=== PATIENT | male | born 1995 | race Caucasian/White ===

== ENCOUNTER 2018-05-01 12:53 | Inpatient (IN) | payer MEDICAID ==
--- NOTE | 2018-05-01 13:16 | ED ---
Psychiatric Complaint - HPI Summary HPI Summary: This patient is a 23 year old M BIB police from [facility] to ED with a chief complaint of SI without a plan since a couple of weeks ago. The patient brought himself to the outpatient [facility] for a second appointment and they sent him to the ED. The patient got out of [facility] a couple months ago for depression and SI without a plan. He was not given rx. He recently moved out of his apartment and is living with some friends. Although patient reports that housing has been a problem. The patient rates the pain 0/10 in severity. Symptoms aggravated by nothing. Symptoms alleviated by nothing. Patient reports depression, anxiety, and feeling defeated and hopeless. 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 His mother lives in [place] and his half- sister and father dont live too far from here. He lives in [place]. FHx of mental health problems, no suicides in the family. - History Of Current Complaint Chief Complaint: EDMentalHealth Hx Obtained From: Patient Onset/Duration: Sudden Onset, Lasting Hours Severity Currently: None Character: Depressed, Anxious Aggravating Factor(s): Nothing Alleviating Factor(s): Nothing Has Suicidal: Reports: Thoughts. Denies: With A Plan - Allergies/Home Medications Allergies/Adverse Reactions: Allergies Allergy/AdvReac Type Severity Reaction Status Date / Time No Known Allergies Allergy Verified 05/01/18 13:18 Home Medications: Home Medications NK [No Home Medications Reported] 05/01/18 [History Confirmed 05/01/18] PMH/Surg Hx/FS Hx/Imm Hx Endocrine/Hematology History: Denies: Hx Diabetes Cardiovascular History: Denies: Hx Coronary Artery Disease, Hx Hypertension Infectious Disease History: No Infectious Disease History: Denies: Traveled Outside the [place] in Last 30 Days - Family History Known Family History: Positive: Other Family History: FHx of depression and anxiety; no suicides in the family - Social History Lives: Alone - with a few friends Alcohol Use: None Substance Use Type: Reports: None Smoking Status (MU): Never Smoked Tobacco Review of Systems Negative: Fever Positive: Anxious, Depressed, Other - SI, feeling defeated and hopeless All Other Systems Reviewed And Are Negative: Yes Physical Exam - Summary Physical Exam Summary: Appearance: Well appearing, no pain distress Skin: warm, dry, reflects adequate perfusion Head/face: normal Eyes: EOMI, KRYSTYNA ENT: normal Neck: supple, non-tender Respiratory: CTA, breath sounds present Cardiovascular: RRR, pulses symmetrical Abdomen: non-tender, soft Bowel Sounds: present Musculoskeletal: normal, strength/ROM intact Neuro: normal, sensory motor intact, A&Ox3 Psych: Vague SI and flat affect Triage Information Reviewed: Yes Vital Signs On Initial Exam: Initial Vitals Temp Pulse Resp BP Pulse Ox 98.1 F 83 15 129/67 96 05/01/18 12:56 05/01/18 12:56 05/01/18 12:56 05/01/18 12:56 05/01/18 12:56 Vital Signs Reviewed: Yes Diagnostics - Vital Signs Vital Signs Temp Pulse Resp BP Pulse Ox 05/01/18 12:56 98.1 F 83 15 129/67 96 - Laboratory Result Diagrams: 05/01/18 13:20 05/01/18 13:20 Lab Statement: Any lab studies that have been ordered have been reviewed, and results considered in the medical decision making process. - EKG 1318 Cardiac Rate: NL - 68 BPM EKG Rhythm: Sinus Rhythm EKG Interpretation: Normal axis interval and ST Course/Dx - Course Course Of Treatment: Patient with flat affect and fleeting suicidal ideations. No specific plan at present. Medically cleared and received a crisis evaluation. It was elected that he be admitted for further psychiatric care. - Differential Dx/Clinical Impression Differential Diagnosis/HQI/PQRI: Positive: Depression, Suicidal Ideation Provider Diagnosis: Depression Discharge - Sign-Out/Discharge Documenting (check all that apply): Patient Departure - Discharge Plan Condition: Fair Disposition: ADMITTED TO [facility] - Billing Disposition and Condition Condition: FAIR Disposition: Admitted to [facility] - Attestation Statements Document Initiated by Scribe: Yes Documenting Scribe: Jr Albrecht Provider For Whom Scribe is Documenting (Include Credential): Kelvin Esquivel MD Scribe Attestation: Jr Haskins, scribed for Kelvin Esquivel MD on 05/01/18 at 1647. Scribe Documentation Reviewed: Yes Provider Attestation: The documentation as recorded by the scribeJr accurately reflects the service I personally performed and the decisions made by , Kelvin Esquivel MD
[2018-05-01 13:36] LABS: ABS Basophils 0 10^3/ul (0-0.2); ABS Eosinophils 0.1 10^3/ul (0-0.6); ABS Lymphocytes 1.2 10^3/ul (1.0-4.8); ABS Monocytes 0.4 10^3/ul (0-0.8); ABS Neutrophils 6.1 10^3/ul (1.5-7.7); ABS Nucleated RBC 0 10^3/ul; Eosinophil % 0.8 % (0-6); Hematocrit 41 % (42-52); Lymphocyte % 15.8 % (25-47); Mean Corpuscular HGB Conc 34 g/dl (31-36); Mean Corpuscular Hemoglobin 29 pg (27-31); Mean Corpuscular Volume 85 fL (80-94); Mean Platelet Volume 7.4 um3 (7.4-10.4); Nucleated Red Blood Cells % 0; Platelet Count 321 10^3/ul (150-450); Red Blood Count 4.82 10^6/ul (4.00-5.40); Red Cell Distribution Width 13 % (10.5-15); White Blood Count 7.9 10^3/ul (3.5-10.8)
[2018-05-01 13:59] LABS: EGFR Non-African American 124.1 (>60)
[2018-05-01 14:17] LABS: Urine Appearance Cloudy; Urine Blood Negative (Negative); Urine Color Yellow; Urine Ketones Negative (Negative); Urine Protein Negative (Negative); Urine Specific Gravity 1.023 (1.010-1.030); Urine Urobilinogen Positive (Negative)
[2018-05-02] MEDS ORDERED: Acetaminophen TAB* 325 MG PO PRN (00:52)
[2018-05-02] MEDS ORDERED: Al Hydrox/Mg Hydrox/Simet LIQ* 30 ML UDC PO PRN (00:52)
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
[2018-05-02] MEDS ORDERED: diPHENhydraMINE PO* 50 MG PO PRN (13:21)
[2018-05-02] MEDS: Vitamin THERAPEUTIC TAB PO SCH (16:41)
[2018-05-02] MEDS: Mirtazapine TAB* 15 MG PO SCH (21:30)
[2018-05-03] MEDS: Vitamin THERAPEUTIC TAB PO SCH (10:06)
[2018-05-03] MEDS: Haloperidol TAB* 5 MG PO PRN (10:59)
--- NOTE | 2018-05-03 12:50 | PN ---
Subjective - Subjective Date of Service: 05/03/18 Service Type: 46534 Hosp care 15 min low complexity Subjective: Patient was seen by self, discussed with treatment team, chart was reviewed. Patient has been compliant with his medications, no reported side effects. Patient reports continue to feel depressed, guilts, feelings of hopelessness and worthlessness, with passive SI. Patient has continuous struggles with his stressors outside the hospital. Patient has been feeling much better in the hospital as he is able to worry less about stressors. Patient has limited support system and resources in the community. Patient has been attending groups and especially was interested in improving his interpersonal skill to strengthen his relationship. Patient sleeping has been better. Patient eating has been fair. Patient has been cooperative with staff. Patient behavior has been in control. Patient mood was less anxious and dysphoric and reports intermittent disconnect when under stressful talk with in himself and experience likely non psychotic hallucinations putting him down. As patient has been worried about his discharge and where he will go and what he will do from there. Patient has been reporting passive suicidal thoughts but no homicidal ideation. No psychotic symptoms of delusions. Objective - Appearance Appearance: Healthy Appearing Dysmorphic Features: No Hygiene: Normal Grooming: Fairly Well Kept - Behavior Psychomotor Activities: Normal Exhibits Abnormal Movement: No - Attitude and Relatedness Attitude and Relatedness: Superficially Cooperative Eye Contact: Fair - Mood Patient's Decription of Mood: "Okay" - Affect Observed Affect: Depressed Affect Consistent with: Dysphoria - Thought Process Patient's Thought Process: Goal Directed Thought Content: Yes Passive Wish, No Suicidal Planning, No Homicidal Ideation, No Paranoid Ideation - Sensorium Experiencing Hallucinations: No, Sensorium is Clear Type of Hallucinations: Visual: No, Auditory: No - not at the time of evaluation , Command: No - Level of Consciousness Level of Consciousness: Alert Orientation: Yes Intact, Yes Orientated to Time, Yes Orientated to Place, Yes Orientated to Person - Impulse Control Impulse Control: Intact - Insight and Judgement Insight and Judgement: Fair - Group Participation Particating in Group Activities: Yes - Medication Management Medication Management Adherence: Yes Assessment - Assessment Merits Inpatient Hospitalization: For Immediate Safety, For Stabilization, For Discharge Planning Inpatient DSM-V Dx: F33.8 Clinical Impression: Patient with history of Depression, anxiety and a suicidal attempt 3 years ago. Patient currently admitted due to worsening of his depression and anxiety, affecting his functioning and triggering his suicidal thoughts and was having a plan to cut his throat with no intact hence seek for help. Patient has also struggled with his homelessness and limited support from family and friends. Patient is a danger to self if discharged hence will be stabilized on inpatient unit with medication adjustments and therapy. Plan - Plan Treatment Plan: Name: RODERICK GUERRERO Birthdate: 1995 [id number] - Patient continues to be hospitalized due to recent suicidal thoughts with plan , depression, anxiety and multiple psychosocial stressor with limited support. - Patient's medications were adjusted after informed consent with continuation of Remeron at 15 mg HS and continue with PRN medications. Also to monitor hallucinations. - Patient will be monitored for improvement and side effects. Risk and benefits were discussed. - Patient was encouraged to continue his participation in the milieu, group and individual therapy. Medications: Current Medications Acetaminophen (Tylenol Tab*) 650 mg PO Q4H PRN PRN Reason: PAIN or TEMP > 101 F Al Hydrox/Mg Hydrox/Simethicone (Maalox Plus*) 30 ml PO Q4H PRN PRN Reason: INDIGESTION Diphenhydramine HCl (Benadryl Po*) 50 mg PO Q6H PRN PRN Reason: anxiety/eps Haloperidol (Haldol Tab*) 5 mg PO Q6H PRN PRN Reason: psychosis/agitation Last Admin: 05/03/18 10:59 Dose: 5 mg Mirtazapine (Remeron Tab*) 15 mg PO BEDTIME [facility] Last Admin: 05/02/18 21:30 Dose: 15 mg Multivitamins (Theragran Tab*) 1 tab PO DAILY [facility] Last Admin: 05/03/18 10:06 Dose: Not Given
--- NOTE | 2018-05-03 13:10 | PN ---
MHU: Group Therapy Note - Service Type Service Type: 83532 Group Psychotherapy - Cognitive Behavioral Group Therapy ( CBT):Patient was attentive and participatory in CBT programming this morning, and remained in good behavioral control. Patient expressed positive insights regarding relevant treatment interventions and goals.
[2018-05-03] MEDS: Mirtazapine TAB* 15 MG PO SCH (21:05)
[2018-05-04] MEDS: Vitamin THERAPEUTIC TAB PO SCH (09:32)
--- NOTE | 2018-05-04 14:27 | PN ---
Subjective - Subjective Date of Service: 05/04/18 Service Type: [id number] Hosp care 15 min low complexity Subjective: Franklyn is seen in weekend coverage for Dr. Marquez. He reports feeling "better" and is tolerating mirtazapine well. He denies SI or thoughts of self-harm. Franklyn continues to experience a female auditory hallucination that makes derogatory statements towards him that are ego-dystonic in nature and somewhat distressing. He tried a 5mg tab of haloperidol for these but states that this made him feel "edgy" and does not want to try it again. He requests q30 minute and staff pass privileges. Staff report that he is adherent with milieu expectations. Objective - Appearance Appearance: Well Developed/Nourished Dysmorphic Features: No Hygiene: Normal Grooming: Fairly Well Kept - Behavior Psychomotor Activities: Normal Exhibits Abnormal Movement: No - Attitude and Relatedness Attitude and Relatedness: Cooperative Eye Contact: Fair - Speech Quality: Unpressured Latencies: Normal Quantity: Appropriate - Mood Patient's Decription of Mood: "Fine" - Affect Observed Affect: Fair Affect Consistent with: Euthymia - Thought Process Patient's Thought Process: Coherent Thought Content: No Passive Wish, No Suicidal Planning, No Homicidal Ideation, No Paranoid Ideation - Sensorium Experiencing Hallucinations: Yes Type of Hallucinations: Visual: No, Auditory: Yes, Command: No - Level of Consciousness Level of Consciousness: Alert Orientation: Yes Intact, Yes Orientated to Time, Yes Orientated to Place, Yes Orientated to Person - Impulse Control Impulse Control: Tenuous - Insight and Judgement Insight and Judgement: Fair - Group Participation Particating in Group Activities: Yes - Medication Management Medication Management Adherence: Yes Assessment - Assessment Merits Inpatient Hospitalization: For Immediate Safety, For Stabilization Inpatient DSM-V Dx: F33.8 Clinical Impression: 23 y.o. single, white male with a history of insecure housing and psychotic depression admitted for worsening anxiety and depressed mood and suicidal thoughts to cut his own throat. Plan - Plan Treatment Plan: Name: RODERICK GUERRERO Birthdate: 1995 [id number] The patient is tolerating mirtazapine 15mg PO qhs well. He continues to require inpatient-level services for safety. Continued Medication Management: Start Medication Medications: Current Medications Acetaminophen (Tylenol Tab*) 650 mg PO Q4H PRN PRN Reason: PAIN or TEMP > 101 F Al Hydrox/Mg Hydrox/Simethicone (Maalox Plus*) 30 ml PO Q4H PRN PRN Reason: INDIGESTION Diphenhydramine HCl (Benadryl Po*) 50 mg PO Q6H PRN PRN Reason: anxiety/eps Haloperidol (Haldol Tab*) 5 mg PO Q6H PRN PRN Reason: psychosis/agitation Last Admin: 05/03/18 10:59 Dose: 5 mg Mirtazapine (Remeron Tab*) 15 mg PO BEDTIME [facility] Last Admin: 05/03/18 21:05 Dose: 15 mg Multivitamins (Theragran Tab*) 1 tab PO DAILY [facility] Last Admin: 05/04/18 09:32 Dose: Not Given - Discharge Plan Discharge Plan: Inpatient Hospitalization Lab Results - Lab Results Lab Results: 05/01/18 05/01/18 05/02/18 13:20 14:08 08:06 Hemoglobin A1c Triglycerides 102 Cholesterol 144 LDL Cholesterol 88 HDL Cholesterol 35.8 TSH 0.01 L Urine Opiates Screen None detected Ur Barbiturates Screen None detected Ur Phencyclidine Scrn None detected Ur Amphetamines Screen None detected U Benzodiazepines Scrn None detected Urine Cocaine Screen None detected U Cannabinoids Screen None detected 05/02/18 08:06 Hemoglobin A1c 5.2 Triglycerides Cholesterol LDL Cholesterol HDL Cholesterol TSH Urine Opiates Screen Ur Barbiturates Screen Ur Phencyclidine Scrn Ur Amphetamines Screen U Benzodiazepines Scrn Urine Cocaine Screen U Cannabinoids Screen
[2018-05-04] MEDS: Mirtazapine TAB* 15 MG PO SCH (20:32)
[2018-05-05] MEDS: Vitamin THERAPEUTIC TAB PO SCH (09:07)
[2018-05-05] MEDS: Mirtazapine TAB* 15 MG PO SCH (20:56)
[2018-05-06] MEDS: Vitamin THERAPEUTIC TAB PO SCH (08:18)
--- NOTE | 2018-05-06 11:39 | PN ---
MHU: Group Therapy Note - Service Type Service Type: [id number] Group Psychotherapy - Cognitive Behavioral Group Therapy ( CBT):Patient was attentive and participatory in CBT programming this morning, and remained in good behavioral control. Patient expressed positive insights regarding relevant treatment interventions and goals.
--- NOTE | 2018-05-06 13:37 | PN ---
Subjective - Subjective Date of Service: 05/06/18 Service Type: 13430 Hosp care 15 min low complexity Subjective: Patient was seen by self, discussed with treatment team, chart was reviewed. Patient has been compliant with his medications, no reported side effects. Patient reports feeling better in his depression, less feelings of hopelessness and worthlessness, no SI. Patient reports anxiety to be at 6/10. Patient has been socializing on the unit with other peers and also participating in groups. Patient working on setting up goals for himself. Patient was able to communicate wit his friend and found out that he can return back. Patient was able to appreciate group on inter personal skills and is working on strengthening relationships with others and improve communication. Patient has limited support system and resources in the community and is hopeful to work with Ariana to help on that. Patient sleeping has been better. Patient eating has been fair. Patient has been cooperative with staff. Patient behavior has been in control. Patient has been reporting no suicidal thoughts or homicidal ideation. No psychotic symptoms of delusions and hallucinations. Objective - Appearance Appearance: Healthy Appearing Dysmorphic Features: No Hygiene: Normal Grooming: Fairly Well Kept - Attitude and Relatedness Attitude and Relatedness: Cooperative Eye Contact: Fair - Speech Quality: Unpressured Latencies: Normal Quantity: Appropriate - Mood Patient's Decription of Mood: "Anxious" - Affect Observed Affect: Fair Affect Consistent with: Dysphoria - less - Thought Process Patient's Thought Process: Coherent, Goal Directed Thought Content: No Passive Wish, No Suicidal Planning, No Homicidal Ideation, No Paranoid Ideation - Sensorium Experiencing Hallucinations: No, Sensorium is Clear Type of Hallucinations: Visual: No, Auditory: No, Command: No - Level of Consciousness Orientation: Yes Intact, Yes Orientated to Time, Yes Orientated to Place, Yes Orientated to Person - Impulse Control Impulse Control: Intact - Insight and Judgement Insight and Judgement: Fair - Group Participation Particating in Group Activities: Yes - Medication Management Medication Management Adherence: Yes Assessment - Assessment Merits Inpatient Hospitalization: For Immediate Safety, For Stabilization, For Discharge Planning Inpatient DSM-V Dx: F33.8 Clinical Impression: Patient with history of Depression, anxiety and a suicidal attempt 3 years ago. Patient currently admitted due to worsening of his depression and anxiety, affecting his functioning and triggering his suicidal thoughts and was having a plan to cut his throat with no intact hence seek for help. Patient has also struggled with his homelessness and limited support from family and friends. Patient is a danger to self if discharged hence will be stabilized on inpatient unit with medication adjustments and therapy. Plan - Plan Treatment Plan: Name: RODERICK GUERRERO Birthdate: 1995 [id number] - Patient continues to be hospitalized due to recent suicidal thoughts with plan , depression, anxiety and multiple psychosocial stressor with limited support. - Patient's medications were adjusted after informed consent with continuation of Remeron at 15 mg HS and continue with PRN medications. Also to monitor hallucinations or other psychotic symptoms. - Patient will be monitored for improvement and side effects. Risk and benefits were discussed. - Patient was encouraged to continue his participation in the milieu, group and individual therapy. Medications: Current Medications Acetaminophen (Tylenol Tab*) 650 mg PO Q4H PRN PRN Reason: PAIN or TEMP > 101 F Al Hydrox/Mg Hydrox/Simethicone (Maalox Plus*) 30 ml PO Q4H PRN PRN Reason: INDIGESTION Diphenhydramine HCl (Benadryl Po*) 50 mg PO Q6H PRN PRN Reason: anxiety/eps Haloperidol (Haldol Tab*) 5 mg PO Q6H PRN PRN Reason: psychosis/agitation Last Admin: 05/03/18 10:59 Dose: 5 mg Mirtazapine (Remeron Tab*) 15 mg PO BEDTIME [facility] Last Admin: 05/05/18 20:56 Dose: 15 mg Multivitamins (Theragran Tab*) 1 tab PO DAILY [facility] Last Admin: 05/06/18 08:18 Dose: Not Given
[2018-05-06] MEDS: Haloperidol TAB* 5 MG PO PRN (15:34)
[2018-05-06] MEDS: Mirtazapine TAB* 15 MG PO SCH (20:33)
[2018-05-07 08:50] VITALS: BP 126/73
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
== END 2018-05-07 11:39 | disposition home or self-care (01) | DRG 751 ==
LOC: ED 12:53 → BSU 16:08
PROVIDERS: ADMIT Psychiatry & Neurology Psychiatry; ATTEND Psychiatry & Neurology Psychiatry
DX: F33.3 Major depressive disorder, recurrent, severe with psychotic symptoms (principal); R45.851 Suicidal ideations; F41.9 Anxiety disorder, unspecified; Z81.8 Family history of other mental and behavioral disorders; Z59.0 Homelessness
CPT/HCPCS: 36415; 80053; 80061; 80307; 80320; 80329; 81003; 83036; 84443; 85025; 90853; 93005; 99222; 99231; 99238; 99284; A9270-GY; G0480

== ENCOUNTER 2018-07-01 10:52 | Inpatient (IN) | payer MEDICAID, OTHER ==
[2018-07-01 11:29] LABS: ABS Basophils 0 10^3/ul (0-0.2); ABS Eosinophils 0.1 10^3/ul (0-0.6); ABS Lymphocytes 1.4 10^3/ul (1.0-4.8); ABS Monocytes 0.4 10^3/ul (0-0.8); ABS Neutrophils 5.5 10^3/ul (1.5-7.7); ABS Nucleated RBC 0 10^3/ul; Eosinophil % 1.1 % (0-6); Hematocrit 45 % (42-52); Hemoglobin 15.4 g/dl (14.0-18.0); Lymphocyte % 19.2 % (25-47); Mean Corpuscular HGB Conc 35 g/dl (31-36); Mean Corpuscular Hemoglobin 29 pg (27-31); Mean Corpuscular Volume 84 fL (80-94); Mean Platelet Volume 7.2 um3 (7.4-10.4); Nucleated Red Blood Cells % 0.1; Platelet Count 367 10^3/ul (150-450); Red Cell Distribution Width 14 % (10.5-15); White Blood Count 7.4 10^3/ul (3.5-10.8)
[2018-07-01 11:41] LABS: Urine Appearance Clear; Urine Blood Negative (Negative); Urine Color Amber; Urine Ketones Trace (Negative); Urine Protein 1+(30 mg/dL) (Negative); Urine Red Blood Cell Absent (Absent); Urine Specific Gravity 1.031 (1.010-1.030); Urine Urobilinogen Positive (Negative); Urine White Blood Cell 1+(6-10/hpf) (Absent)
[2018-07-01 11:50] LABS: EGFR Non-African American 96.2 (>60)
--- NOTE | 2018-07-01 12:41 | ED ---
Psychiatric Complaint - HPI Summary HPI Summary: Patient is a 23 y/o M w/ c/o SI w/ plan to overdose on pills. He is here as 941. Patient reports Hx of suicide attempt by overdosing on pills. He notes that he was admitted to [facility] [place] psych a couple of months ago as well. Patient denies drug usage, states that PCP recently switched him onto wellbutrin on after an appointment with PCP to discuss medications. Previous medications were not effective. He notes that he has not picked up his medication yet. He denies blurry/double vision, chest pain, SOB, MANLEY, sore throat , ear ache, neck pain, back pain, vomiting, diarrhea, edema, rashes, bruises. On triage, pain is denied, nothing is noted to aggravate/alleviate Sx. Home medications and allergies are reviewed. - History Of Current Complaint Chief Complaint: [facility] Hx Obtained From: Patient Onset/Duration: Still Present Timing: Constant Severity Currently: None - pain denied Character: Depressed Aggravating Factor(s): Nothing Alleviating Factor(s): Nothing Has Suicidal: Reports: Thoughts, With A Plan, Has Prior Attempt(s) - Allergies/Home Medications Allergies/Adverse Reactions: Allergies Allergy/AdvReac Type Severity Reaction Status Date / Time No Known Allergies Allergy Verified 05/01/18 13:18 PMH/Surg Hx/FS Hx/Imm Hx Endocrine/Hematology History: Denies: Hx Diabetes Cardiovascular History: Denies: Hx Coronary Artery Disease, Hx Hypertension Sensory History: Reports: Hx Contacts or Glasses Denies: Hx Hearing Aid Opthamlomology History: Reports: Hx Contacts or Glasses Neurological History: Reports: Hx Migraine Psychiatric History: Reports: Hx Anxiety, Hx Eating Disorder - hx "binge and purge", Hx Depression, Hx Panic Disorder, Hx Post Traumatic Stress Disorder, Hx Inpatient Treatment, Hx Community Mental Health Tx, Hx Suicide Attempt Denies: Hx Schizophrenia, Hx of Violent Episodes Against Others, Hx Substance Abuse Infectious Disease History: No Infectious Disease History: Denies: Traveled Outside the [place] in Last 30 Days - Family History Known Family History: Positive: Other Family History: FHx of depression and anxiety; no suicides in the family - Social History Alcohol Use: None Substance Use Type: Reports: None Smoking Status (MU): Never Smoked Tobacco Review of Systems Negative: Fever - on vitals, temp is 97.1 F Positive: Other - NEGATIVE: double vision . Negative: Blurred Vision Negative: Sore Throat, Ear Ache Negative: Chest Pain Negative: Shortness Of Breath Negative: Vomiting, Diarrhea Positive: other - NEGATIVE: blood in stool . Negative: dysuria, hematuria Positive: Other - NEGATIVE: neck pain . Negative: Edema Negative: Rash, Bruising Negative: Headache Positive: Depressed, Other - SI w/ plan All Other Systems Reviewed And Are Negative: No Physical Exam - Summary Physical Exam Summary: Appearance: Alert, conversive, nontoxic appearing Skin: Warm, dry, no mottling, no rashes, no contusions HEENT: EOMI, PERRL, moist mucous membranes Neck: No masses on the neck, supple Respiratory: Clear to auscultation, breath sounds present, no rales, no rhonchi , no wheezes Cardiovascular: RRR, pulses are symmetrical in both lower and upper extremities Abdomen: Soft, non-tender Bowel Sounds: Present Musculoskeletal: No CVA tenderness, no obvious deformity, moving all extremities in a grossly normal manner Neurological: A&Ox3, CN II-XII Intact, moving all extremities symmetrically Psychiatric: Flat affect, tearful. Triage Information Reviewed: Yes Vital Signs On Initial Exam: Initial Vitals Temp Pulse Resp BP Pulse Ox 97.1 F 97 16 116/72 97 07/01/18 10:56 07/01/18 10:56 07/01/18 10:56 07/01/18 10:56 07/01/18 10:56 Vital Signs Reviewed: Yes Diagnostics - Vital Signs Vital Signs Temp Pulse Resp BP Pulse Ox 07/01/18 12:28 98.2 F 82 18 121/72 98 07/01/18 10:56 97.1 F 97 16 116/72 97 - Laboratory Lab Results: Lab Results 07/01/18 07/01/18 07/01/18 Range/Units 11:18 11:18 11:24 WBC 7.4 (3.5-10.8) 10^3/ul RBC 5.30 (4.00-5.40) 10^6/ul Hgb 15.4 (14.0-18.0) g/dl Hct 45 (42-52) % MCV 84 (80-94) fL MCH 29 (27-31) pg MCHC 35 (31-36) g/dl RDW 14 (10.5-15) % Plt Count 367 (150-450) 10^3/ul MPV 7.2 L (7.4-10.4) um3 Neut % (Auto) 73.9 (38-83) % Lymph % (Auto) 19.2 L (25-47) % Payette % (Auto) 5.6 (0-7) % Eos % (Auto) 1.1 (0-6) % Baso % (Auto) 0.2 (0-2) % Absolute Neuts (auto) 5.5 (1.5-7.7) 10^3/ul Absolute Lymphs (auto) 1.4 (1.0-4.8) 10^3/ul Absolute Monos (auto) 0.4 (0-0.8) 10^3/ul Absolute Eos (auto) 0.1 (0-0.6) 10^3/ul Absolute Basos (auto) 0 (0-0.2) 10^3/ul Absolute Nucleated RBC 0 10^3/ul Nucleated RBC % 0.1 Sodium 138 (135-145) mmol/L Potassium 3.9 (3.5-5.0) mmol/L Chloride 103 (101-111) mmol/L Carbon Dioxide 29 (22-32) mmol/L Anion Gap 6 (2-11) mmol/L BUN 10 (6-24) mg/dL Creatinine 0.96 (0.67-1.17) mg/dL Est GFR ( Amer) 116.4 (>60) Est GFR (Non-Af Amer) 96.2 (>60) BUN/Creatinine Ratio 10.4 (8-20) Glucose 98 (70-100) mg/dL Calcium 9.8 (8.6-10.3) mg/dL Total Bilirubin 1.80 H (0.2-1.0) mg/dL AST 18 (13-39) U/L ALT 17 (7-52) U/L Alkaline Phosphatase 66 (34-104) U/L Total Protein 7.9 (6.4-8.9) g/dL Albumin 4.5 (3.2-5.2) g/dL Globulin 3.4 (2-4) g/dL Albumin/Globulin Ratio 1.3 (1-3) TSH Pending Urine Color Josette Urine Appearance Clear Urine pH 5.0 (5-9) Ur Specific Anderson 1.031 H (1.010-1.030) Urine Protein 1+(30 mg/dl) A (Negative) Urine Ketones Trace A (Negative) Urine Blood Negative (Negative) Urine Nitrate Negative (Negative) Urine Bilirubin Negative (Negative) Urine Urobilinogen Positive A (Negative) Ur Leukocyte Esterase Negative (Negative) Urine WBC (Auto) 1+(6-10/hpf) A (Absent) Urine RBC (Auto) Absent (Absent) Urine Bacteria Absent (Absent) Urine Glucose Negative (Negative) Salicylates < 2.50 (<30) mg/dL Urine Opiates Screen (None Detect) Acetaminophen < 15 mcg/mL Ur Barbiturates Screen (None Detect) Ur Phencyclidine Scrn (None Detect) Ur Amphetamines Screen (None Detect) U Benzodiazepines Scrn (None Detect) Urine Cocaine Screen (None Detect) U Cannabinoids Screen (None Detect) Serum Alcohol < 10 (<10) mg/dL 07/01/18 Range/Units 11:24 WBC (3.5-10.8) 10^3/ul RBC (4.00-5.40) 10^6/ul Hgb (14.0-18.0) g/dl Hct (42-52) % MCV (80-94) fL MCH (27-31) pg MCHC (31-36) g/dl RDW (10.5-15) % Plt Count (150-450) 10^3/ul MPV (7.4-10.4) um3 Neut % (Auto) (38-83) % Lymph % (Auto) (25-47) % Payette % (Auto) (0-7) % Eos % (Auto) (0-6) % Baso % (Auto) (0-2) % Absolute Neuts (auto) (1.5-7.7) 10^3/ul Absolute Lymphs (auto) (1.0-4.8) 10^3/ul Absolute Monos (auto) (0-0.8) 10^3/ul Absolute Eos (auto) (0-0.6) 10^3/ul Absolute Basos (auto) (0-0.2) 10^3/ul Absolute Nucleated RBC 10^3/ul Nucleated RBC % Sodium (135-145) mmol/L Potassium (3.5-5.0) mmol/L Chloride (101-111) mmol/L Carbon Dioxide (22-32) mmol/L Anion Gap (2-11) mmol/L BUN (6-24) mg/dL Creatinine (0.67-1.17) mg/dL Est GFR ( Amer) (>60) Est GFR (Non-Af Amer) (>60) BUN/Creatinine Ratio (8-20) Glucose (70-100) mg/dL Calcium (8.6-10.3) mg/dL Total Bilirubin (0.2-1.0) mg/dL AST (13-39) U/L ALT (7-52) U/L Alkaline Phosphatase (34-104) U/L Total Protein (6.4-8.9) g/dL Albumin (3.2-5.2) g/dL Globulin (2-4) g/dL Albumin/Globulin Ratio (1-3) TSH Urine Color Urine Appearance Urine pH (5-9) Ur Specific Anderson (1.010-1.030) Urine Protein (Negative) Urine Ketones (Negative) Urine Blood (Negative) Urine Nitrate (Negative) Urine Bilirubin (Negative) Urine Urobilinogen (Negative) Ur Leukocyte Esterase (Negative) Urine WBC (Auto) (Absent) Urine RBC (Auto) (Absent) Urine Bacteria (Absent) Urine Glucose (Negative) Salicylates (<30) mg/dL Urine Opiates Screen None detected (None Detect) Acetaminophen mcg/mL Ur Barbiturates Screen None detected (None Detect) Ur Phencyclidine Scrn None detected (None Detect) Ur Amphetamines Screen None detected (None Detect) U Benzodiazepines Scrn None detected (None Detect) Urine Cocaine Screen None detected (None Detect) U Cannabinoids Screen None detected (None Detect) Serum Alcohol (<10) mg/dL Result Diagrams: 07/01/18 11:18 07/01/18 11:18 Lab Statement: Any lab studies that have been ordered have been reviewed, and results considered in the medical decision making process. Re-Evaluation - Re-Evaluation First Eval Re-Evaluation Time: 11:45 Comment: Patient was medically cleared for MHE. Course/Dx - Course Course Of Treatment: Patient is a 23 y/o M w/ c/o SI w/ plan to overdose on pills. He is here as 941. Patient reports Hx of suicide attempt by overdosing on pills. He notes that he was admitted to [facility] psych a couple of months ago as well. Patient denies drug usage, states that PCP recently switched him onto wellbutrin on 06/27/18 after an appointment with PCP to discuss medications. Previous medications were not effective. He notes that he has not picked up his medication yet. No other medical problems reported. On physical exam, patient is noted to have flat affect and to be tearful. EKG showed sinus rhythm with rate of 63 BPM normal QRS, normal QTc, normal axis, normal ST-T waves. Tox screen was negative. UA showed negative glucose, absent bacteria, 1+ WBC, positive urobilinogen, trace ketones, 1+ protein. Labs showed TSH 0.15. 1641 - Dr. Perez reviewed the patient's case, patient will be a mental health hold pending evaluation of patient by psychiatrist tomorrow morning. Patient will be signed out to Dr. Perkins pending disposition of patient. Dx of depression and SI. - Differential Dx/Clinical Impression Provider Diagnosis: Depression, Suicidal ideation - Physician Notifications Discussed Care Of Patient With: Andrews Perez Time Discussed With Above Provider: 16:41 Instructed by Provider To: Other - 1641 - Dr. Perez reviewed the patient's case , patient will be a mental health hold pending evaluation of patient by psychiatrist tomorrow morning. Discharge - Sign-Out/Discharge Documenting (check all that apply): Sign-Out Patient Signing out patient TO: Andrea Perkins Receiving patient FROM: Prudence Beckman - Discharge Plan Referrals: No Primary Care Phys,NOPCP [Primary Care Provider] - - Attestation Statements Document Initiated by Uzielibe: Yes Documenting Scribe: Rober Fritz Provider For Whom Zainab is Documenting (Include Credential): Prudence Beckman MD Scribe Attestation: Jozef, Rober Fritz , scribed for Prudence Beckman MD on 07/01/18 at 1855. Scribe Documentation Reviewed: Yes Provider Attestation: The documentation as recorded by the Rober lowry accurately reflects the service I personally performed and the decisions made by me, Prudence Beckman MD
--- NOTE | 2018-07-01 19:31 | ED ---
Progress - Progress Note Progress Note: Pt signed out by Dr. Beckman to Dr. Perkins at shift change pending MHE. - Consult/PCP Time Called: 15:00 Re-Evaluation - Re-Evaluation First Eval Re-Evaluation Time: 11:45 Comment: Patient was medically cleared for MHE. Course/Dx - Course Course Of Treatment: Patient is a 23 y/o M w/ c/o SI w/ plan to overdose on pills. He is here as 941. Patient reports Hx of suicide attempt by overdosing on pills. He notes that he was admitted to [facility] psych a couple of months ago as well. Patient denies drug usage, states that PCP recently switched him onto wellbutrin on 06/27/18 after an appointment with PCP to discuss medications. Previous medications were not effective. He notes that he has not picked up his medication yet. No other medical problems reported. On physical exam, patient is noted to have flat affect and to be tearful. EKG showed sinus rhythm with rate of 63 BPM normal QRS, normal QTc, normal axis, normal ST-T waves. Tox screen was negative. UA showed negative glucose, absent bacteria, 1+ WBC, positive urobilinogen, trace ketones, 1+ protein. Labs showed TSH 0.15. 1641 - Dr. Perez reviewed the patient's case, patient will be a mental health hold pending evaluation of patient by psychiatrist tomorrow morning. Patient will be signed out to Dr. Perkins pending disposition of patient. Dx of depression and SI. - Diagnoses Provider Diagnoses: Depression, Suicidal ideation - Provider Notifications Time Discussed With Above Provider: 16:41 Instructed by Provider To: Other - 1641 - Dr. Perez reviewed the patient's case , patient will be a mental health hold pending evaluation of patient by psychiatrist tomorrow morning. Discharge - Discharge Plan Referrals: No Primary Care Phys,NOPCP [Primary Care Provider] - - Attestation Statements Document Initiated by Scribe: Yes Documenting Scribe: Eros Stoddard Provider For Whom Scribe is Documenting (Include Credential): Andrea Perkins MD Scribe Attestation: Eros Haskins, scribed for Andrea Perkins MD on 07/01/18 at 1931.
--- NOTE | 2018-07-02 07:25 | ED ---
Progress - Progress Note Progress Note: Patient is received as a sign out from Dr. Perkins to Dr. George at 0700 shift change pending MHE by psychiatrist. 1100 - Dr. Marquez reviewed patient's case, patient will be a voluntary admit. older worker specialist recommended that [facility], patient stated that he would kill himself if this is his only option. Dr. George is agreeable with this plan. Dx of depression. - Consult/PCP Time Called: 15:00 Re-Evaluation - Re-Evaluation First Eval Re-Evaluation Time: 11:45 Comment: Patient was medically cleared for MHE. Course/Dx - Course Course Of Treatment: Patient is received as a sign out from Dr. Perkins to Dr. George at 0700 07/02/18 shift change pending MHE by psychiatrist. 1100 - Dr. Marquez reviewed patient's case, patient will be a voluntary admit. older worker specialist recommended that patient go to [facility], patient stated that he would kill himself if this is his only option. Dr. George is agreeable with this plan. Dx of depression. - Diagnoses Provider Diagnoses: Depression - Provider Notifications Discussed Care Of Patient With: Andrew Marquez Time Discussed With Above Provider: 11:00 Instructed by Provider To: Other - 1100 - Dr. Marquez reviewed patient's case, patient will be a voluntary admit. older worker specialist recommended that patient go to [facility], patient stated that he would kill himself if this is his only option. Dr. George is agreeable with this plan. Dx of depression. Discharge - Sign-Out/Discharge Documenting (check all that apply): Patient Departure - admit - Discharge Plan Condition: Good Disposition: PSYCHIATRIC FACILITY[facility] Referrals: No Primary Care Phys,NOPCP [Primary Care Provider] - - Attestation Statements Document Initiated by Scribe: Yes Documenting Scribe: Rober Fritz Provider For Whom Scribe is Documenting (Include Credential): Cem George MD Scribe Attestation: Rober Haskins , scribed for Cem George MD on 07/02/18 at 1105.
[2018-07-02] MEDS ORDERED: diPHENhydraMINE PO* 50 MG PO PRN (11:00)
[2018-07-02] MEDS ORDERED: Al Hydrox/Mg Hydrox/Simet LIQ* 30 ML UDC PO PRN (12:43)
[2018-07-02] MEDS: Mirtazapine TAB* 15 MG PO SCH (21:21)
[2018-07-03] MEDS: Vitamin THERAPEUTIC TAB PO SCH (08:49)
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
--- NOTE | 2018-07-03 15:05 | PN ---
MHU: Group Therapy Note - Service Type Service Type: 61891 Psychotherapy - Medication Education Group: Patient was attentive and participatory in group, and remained in good behavioral control. Patient expressed positive insights regarding relevant treatment interventions. Patient stated understanding of material discussed and had appropriate questions.
[2018-07-03] MEDS: Mirtazapine TAB* 15 MG PO SCH (20:08)
[2018-07-03] MEDS: Lithium Carbonate ER* 450 MG TAB.ER PO SCH (20:08)
[2018-07-04] MEDS: Vitamin THERAPEUTIC TAB PO SCH (09:43)
--- NOTE | 2018-07-04 10:59 | PN ---
MHU: Group Therapy Note - Service Type Service Type: [id number] Group Psychotherapy - Cognitive Behavioral Group Therapy ( CBT):Patient attended CBT programming this morning and presented with flat affect that did not vary with discussion. Although responsive to direct prompts to respond to questions, patient did not engage in spontaneous conversation.
[2018-07-04] MEDS: BuPROPion XL* 150 MG TAB.XL PO SCH (14:41)
--- NOTE | 2018-07-04 16:28 | PN ---
Subjective - Subjective Date of Service: 07/04/18 Service Type: [id number] Hosp care 25 min moderate complexity Subjective: Franklyn sits alone during the day. He is pleasant, but appears anxious and fearful. He appears to be near tears much of the time. He is unable to express what is wrong. We discuss what might be helpful. He agrees to start lithium and Wellbutrin. Objective - Appearance Appearance: Healthy Appearing Dysmorphic Features: No Hygiene: Mal-odorous Grooming: Fairly Well Kept - Behavior Psychomotor Activities: Normal Exhibits Abnormal Movement: No - Attitude and Relatedness Attitude and Relatedness: Regressed Eye Contact: Fair - Speech Quality: Unpressured Latencies: Normal Quantity: Terse - Mood Patient's Decription of Mood: "Anxious" - Affect Observed Affect: Constricted Affect Consistent with: Dysphoria - Thought Process Patient's Thought Process: Coherent, Impoverished Thought Content: Yes Passive Wish, Yes Suicidal Planning, No Homicidal Ideation, No Paranoid Ideation - Sensorium Experiencing Hallucinations: Yes Type of Hallucinations: Visual: No, Auditory: Yes, Command: No - Level of Consciousness Level of Consciousness: Alert Orientation: Yes Intact, Yes Orientated to Time, Yes Orientated to Place, Yes Orientated to Person - Impulse Control Impulse Control: Tenuous - Insight and Judgement Insight and Judgement: Poor - Group Participation Particating in Group Activities: No - Medication Management Medication Management Adherence: Yes - Additional Observations Comments: Despite having taken a shower recently, Franklyn is a bit malodorous.He's anxious and unhappy. He hearing the voice of the woman he chronically hears saying degrading things. He continues thinking of suicide. Assessment - Assessment Merits Inpatient Hospitalization: For Immediate Safety Clinical Impression: Franklyn is a 23-year-old man who comes in following contemplating taking an overdose of Benadryl and calling the police after waiting to see if the impulse would pass. As it did not, he is here on the unit. He is struggling with depression and anxiety as well as the hallucination of a woman's voice. At this time he is tearful and anxious. Plan - Plan Treatment Plan: Name: RODERICK GUERRERO Birthdate: 1995 [id number] Continued Medication Management: Different Medication Medications: Current Medications Acetaminophen (Tylenol Tab*) 650 mg PO Q4H PRN PRN Reason: PAIN or TEMP > 101 F Al Hydrox/Mg Hydrox/Simethicone (Maalox Plus*) 30 ml PO Q4H PRN PRN Reason: INDIGESTION Bupropion HCl (Wellbutrin Xl *) 150 mg PO DAILY JERRY; Protocol Last Admin: 07/04/18 14:41 Dose: 150 mg Diphenhydramine HCl (Benadryl Po*) 50 mg PO BEDTIME PRN PRN Reason: ANXIETY [place] Carbonate ([place] Carbonate Er Tab*) 450 mg PO BEDTIME JERRY Stop: 07/05/18 00:01 Last Admin: 07/03/18 20:08 Dose: 450 mg [place] Carbonate ([place] Carbonate Er Tab*) 900 mg PO DAILY JERRY Multivitamins (Theragran Tab*) 1 tab PO DAILY JERRY Last Admin: 07/04/18 09:43 Dose: 1 tab - Discharge Plan Discharge Plan: Outpatient Follow Up Additional Comments: Max will be looking forward to changing medication (starting lithium and Wellbutrin) and engaging in group programming. At this point, it is unclear where he will live following discharge. This will determine his outpatient follow up situation.
[2018-07-04] MEDS: Lithium Carbonate ER* 450 MG TAB.ER PO SCH (21:40)
[2018-07-05] MEDS ORDERED: Lithium Carbonate ER* 450 MG TAB.ER PO SCH ×2 (09:00→21:00)
[2018-07-05] MEDS: Vitamin THERAPEUTIC TAB PO SCH (10:08)
[2018-07-05] MEDS: BuPROPion XL* 150 MG TAB.XL PO SCH ×2 (10:08→19:59)
--- NOTE | 2018-07-05 15:58 | PN ---
Subjective - Subjective Date of Service: 07/05/18 Service Type: [id number] Hosp care 25 min moderate complexity Subjective: Franklyn is lying in bed crying. He won't look at me or speak. He simply nods or shakes his head. About an hour later he agrees to talk and says he's unhappy and feels like he'll never feel better. He remains tearful. We also engage Sarah Melendrez to talk with him. In the end, he agrees to come out and work hard to maintain a presence in the milieu. Objective - Appearance Appearance: Well Developed/Nourished Dysmorphic Features: No Hygiene: Normal Grooming: Fairly Well Kept - Behavior Psychomotor Activities: Abnormal-Decreased Exhibits Abnormal Movement: No - Attitude and Relatedness Attitude and Relatedness: Regressed Eye Contact: Fair - Speech Quality: Unpressured Latencies: Short Quantity: Terse - Mood Patient's Decription of Mood: "Anxious" - Affect Observed Affect: Constricted Affect Consistent with: Dysphoria - Thought Process Patient's Thought Process: Coherent Thought Content: Yes Passive Wish, Yes Suicidal Planning, No Homicidal Ideation, No Paranoid Ideation - Sensorium Experiencing Hallucinations: Yes Type of Hallucinations: Visual: No, Auditory: Yes, Command: No - Level of Consciousness Level of Consciousness: Agitated Orientation: Yes Intact, Yes Orientated to Time, Yes Orientated to Place, Yes Orientated to Person - Impulse Control Impulse Control: Tenuous - Insight and Judgement Insight and Judgement: Impaired - Group Participation Particating in Group Activities: No - Medication Management Medication Management Adherence: Partial - Additional Observations Comments: Franklyn remains sad and unhappy. He's willing to walk around the unit with company, but otherwise he is sedentary and tearful. Assessment - Assessment Merits Inpatient Hospitalization: For Immediate Safety Clinical Impression: 23-y.-o. whiite male who is admitted to the [facility] again for similar symptoms to last time. He is depressed and nearly bereft of hope. He does have things in the outside world that might provide him support in the future, but at this time , he cannot see their usefulness. Plan - Plan Treatment Plan: Name: RODERICK GUERRERO Birthdate: 1995 [id number] Continued Medication Management: Different Medication Medications: Current Medications Acetaminophen (Tylenol Tab*) 650 mg PO Q4H PRN PRN Reason: PAIN or TEMP > 101 F Al Hydrox/Mg Hydrox/Simethicone (Maalox Plus*) 30 ml PO Q4H PRN PRN Reason: INDIGESTION Bupropion HCl (Wellbutrin Xl *) 150 mg PO DAILY JERRY; Protocol Last Admin: 07/05/18 10:08 Dose: Not Given Diphenhydramine HCl (Benadryl Po*) 50 mg PO BEDTIME PRN PRN Reason: ANXIETY [place] Carbonate ([place] Carbonate Er Tab*) 900 mg PO BEDTIME JERRY Lorazepam (Ativan Tab(*)) 0.25 mg PO Q4H PRN PRN Reason: ANXIETY Multivitamins (Theragran Tab*) 1 tab PO DAILY JERRY Last Admin: 07/05/18 10:08 Dose: Not Given - Discharge Plan Additional Comments: Max will remain on the unit for a time, until he feels more like himself and feels like he can negotiate the problems he came in to escape.
[2018-07-05] MEDS: Lithium Carbonate ER* 450 MG TAB.ER PO SCH (19:59)
[2018-07-06] MEDS: Vitamin THERAPEUTIC TAB PO SCH (08:12)
[2018-07-06] MEDS: BuPROPion XL* 150 MG TAB.XL PO SCH (08:12)
[2018-07-06] MEDS: LORazepam TAB(*) 0.5 MG PO PRN (10:48)
--- NOTE | 2018-07-06 16:18 | PN ---
Subjective - Subjective Date of Service: 07/06/18 Service Type: [id number] Hosp care 15 min low complexity Subjective: Max is seen in weekend coverage for NPP, Rajani Lemus. He had a difficult morning today when staff noted that he had scratched some significant abrasions on his left forearm following a visit by family. He was obligated to fill out a [employer] form but gave this up after half a page, complaining that the process felt infantilizing to him. "I felt like I was being treated like a misbehaving kid." Staff rendered him a new version of the form, sanitized to exclude terms like "Acting Out Behaviors" and he willingly filled this out and was regranted comfort room privileges. He is taking bupropion and lithium and states that he is tolerating them well. He continues to endorse suicidal ideations if discharged. Objective - Appearance Appearance: Well Developed/Nourished Dysmorphic Features: No Hygiene: Normal Grooming: Well Kept - Behavior Psychomotor Activities: Normal Exhibits Abnormal Movement: No - Attitude and Relatedness Attitude and Relatedness: Cooperative Eye Contact: Fair - Speech Quality: Unpressured Latencies: Normal Quantity: Appropriate - Mood Patient's Decription of Mood: "Okay" - Affect Observed Affect: Fair Affect Consistent with: Euthymia - Thought Process Patient's Thought Process: Coherent Thought Content: Yes Suicidal Planning, No Passive Wish, No Homicidal Ideation, No Paranoid Ideation - Sensorium Experiencing Hallucinations: Yes Type of Hallucinations: Visual: No, Auditory: Yes, Command: No - Level of Consciousness Level of Consciousness: Alert Orientation: Yes Intact, Yes Orientated to Time, Yes Orientated to Place, Yes Orientated to Person - Impulse Control Impulse Control: Tenuous - Insight and Judgement Insight and Judgement: Fair - Group Participation Particating in Group Activities: Yes - Medication Management Medication Management Adherence: Yes Assessment - Assessment Merits Inpatient Hospitalization: For Immediate Safety, For Stabilization Inpatient DSM-V Dx: F32.9 Clinical Impression: 23-y.o. white male who is admitted to the [facility] again for similar symptoms to last time. He is depressed and nearly bereft of hope. He does have things in the outside world that might provide him support in the future, but at this time , he cannot see their usefulness. Plan - Plan Treatment Plan: Name: RODERICK GUERRERO Birthdate: 1995 [id number] The patient is receiving bupropion XL 150mg PO qam and lithium 900mg PO qhs. He requires continued inpatient services. Continued Medication Management: Different Medication Medications: Current Medications Acetaminophen (Tylenol Tab*) 650 mg PO Q4H PRN PRN Reason: PAIN or TEMP > 101 F Al Hydrox/Mg Hydrox/Simethicone (Maalox Plus*) 30 ml PO Q4H PRN PRN Reason: INDIGESTION Bupropion HCl (Wellbutrin Xl *) 150 mg PO DAILY JERRY; Protocol Last Admin: 07/06/18 08:12 Dose: 150 mg Diphenhydramine HCl (Benadryl Po*) 50 mg PO BEDTIME PRN PRN Reason: ANXIETY [place] Carbonate ([place] Carbonate Er Tab*) 900 mg PO BEDTIME JERRY Last Admin: 07/05/18 19:59 Dose: 900 mg Lorazepam (Ativan Tab(*)) 0.25 mg PO Q4H PRN PRN Reason: ANXIETY Last Admin: 07/06/18 10:48 Dose: 0.25 mg Multivitamins (Theragran Tab*) 1 tab PO DAILY JERRY Last Admin: 07/06/18 08:12 Dose: 1 tab - Discharge Plan Discharge Plan: Inpatient Hospitalization
[2018-07-06] MEDS: Lithium Carbonate ER* 450 MG TAB.ER PO SCH (20:03)
[2018-07-07] MEDS: BuPROPion XL* 150 MG TAB.XL PO SCH (08:43)
[2018-07-07] MEDS: LORazepam TAB(*) 0.5 MG PO PRN ×3 (08:44→20:57)
[2018-07-07] MEDS: Vitamin THERAPEUTIC TAB PO SCH (08:44)
[2018-07-07] MEDS: Acetaminophen TAB* 325 MG PO PRN (16:59)
[2018-07-07] MEDS: Lithium Carbonate ER* 450 MG TAB.ER PO SCH (20:56)
[2018-07-08] MEDS: Vitamin THERAPEUTIC TAB PO SCH (08:37)
[2018-07-08] MEDS: LORazepam TAB(*) 0.5 MG PO PRN ×2 (08:37→13:45)
[2018-07-08] MEDS: BuPROPion XL* 150 MG TAB.XL PO SCH (08:37)
--- NOTE | 2018-07-08 13:45 | PN ---
Subjective - Subjective Date of Service: 07/08/18 Service Type: [id number] Hosp care 15 min low complexity Subjective: Franklyn is very unhappy with his situation and himself. He feels like he has made no progress and is unhappy with himself. He wonders if he will ever feel better. We talk about his strengths and what he has already proven to himself. He is having a difficult time seeing the things in his life that are good for him. Objective - Appearance Appearance: Well Developed/Nourished Dysmorphic Features: No Hygiene: Normal Grooming: Fairly Well Kept - Behavior Psychomotor Activities: Normal Exhibits Abnormal Movement: No - Attitude and Relatedness Attitude and Relatedness: Needy Eye Contact: Good - Speech Quality: Unpressured Latencies: Normal Quantity: Appropriate - Mood Patient's Decription of Mood: "Terrible" - Affect Observed Affect: Tearful Affect Consistent with: Dysphoria - Thought Process Patient's Thought Process: Coherent Thought Content: Yes Passive Wish, Yes Suicidal Planning, No Homicidal Ideation, No Paranoid Ideation - Sensorium Experiencing Hallucinations: Yes Type of Hallucinations: Visual: No, Auditory: Yes - A woman's voice that he always hears, Command: No - Level of Consciousness Level of Consciousness: Alert Orientation: Yes Intact, Yes Orientated to Time, Yes Orientated to Place, Yes Orientated to Person - Impulse Control Impulse Control: Impaired - Insight and Judgement Insight and Judgement: Poor - Group Participation Particating in Group Activities: Yes - Medication Management Medication Management Adherence: Yes - Additional Observations Comments: Franklyn remains sad and unhappy. He's willing to walk around the unit with company, but he is tearful. He is tolerating medications well and is struggling with anxiety, having had a panic attack on the weekend that caused him to vomit for 1.5 hours. Assessment - Assessment Merits Inpatient Hospitalization: For Immediate Safety Inpatient DSM-V Dx: F32.9 Clinical Impression: 23-y.o. white male who is admitted to the [facility] again for similar symptoms to last time. He is depressed and nearly bereft of hope. He does have things in the outside world that might provide him support in the future, but at this time , he cannot see their usefulness. His anxiety is problematically high, as demonstrated by his scratching of his left arm. Plan - Plan Treatment Plan: Name: RODERICK GUERRERO Birthdate: 1995 [id number] Continued Medication Management: Different Medication Medications: Current Medications Acetaminophen (Tylenol Tab*) 650 mg PO Q4H PRN PRN Reason: PAIN or TEMP > 101 F Last Admin: 07/07/18 16:59 Dose: 650 mg Al Hydrox/Mg Hydrox/Simethicone (Maalox Plus*) 30 ml PO Q4H PRN PRN Reason: INDIGESTION Bupropion HCl (Wellbutrin Xl *) 150 mg PO DAILY JERRY; Protocol Last Admin: 07/08/18 08:37 Dose: 150 mg Diphenhydramine HCl (Benadryl Po*) 50 mg PO BEDTIME PRN PRN Reason: ANXIETY [place] Carbonate ([place] Carbonate Er Tab*) 900 mg PO BEDTIME JERRY Last Admin: 07/07/18 20:56 Dose: 900 mg Lorazepam (Ativan Tab(*)) 0.25 mg PO Q4H PRN PRN Reason: ANXIETY Last Admin: 07/08/18 08:37 Dose: 0.25 mg Multivitamins (Theragran Tab*) 1 tab PO DAILY JERRY Last Admin: 07/08/18 08:37 Dose: 1 tab - Discharge Plan Discharge Plan: Outpatient Follow Up Additional Comments: Franklyn will remain on the unit for a time, until he feels more like himself and feels like he can negotiate the problems he came in to escape. Medications will be reassessed as his anxiety is not adequately managed at this time.
[2018-07-08] MEDS ORDERED: hydrOXYzine HCL TAB* 25 MG PO PRN (14:41)
[2018-07-08] MEDS: Gabapentin CAP(*) 100 MG PO PRN (20:12)
[2018-07-08] MEDS: Lithium Carbonate ER* 450 MG TAB.ER PO SCH (20:14)
[2018-07-09] MEDS: Vitamin THERAPEUTIC TAB PO SCH (08:03)
[2018-07-09] MEDS: BuPROPion XL* 150 MG TAB.XL PO SCH (08:03)
[2018-07-09] MEDS: Gabapentin CAP(*) 100 MG PO PRN ×2 (08:30→12:52)
--- NOTE | 2018-07-09 13:31 | PN ---
Subjective - Subjective Date of Service: 07/09/18 Service Type: [id number] Hosp care 25 min moderate complexity Subjective: Franklyn stayed up late last night playing cards and socializing. While he was congratulated on socializing and appearing to have a good time, he is still daunted by his high anxiety and anhedonia. He has found some compatriots here on the unit, but he still fears he is not making progress. I gave him feedback that I see progress including brightening of mood. We also discussed grounding exercises and how to avoid panic by using a pause button. Objective - Appearance Appearance: Healthy Appearing Dysmorphic Features: No Hygiene: Normal Grooming: Fairly Well Kept - Behavior Psychomotor Activities: Normal Exhibits Abnormal Movement: No - Attitude and Relatedness Attitude and Relatedness: Needy Eye Contact: Fair - Speech Quality: Unpressured Latencies: Normal Quantity: Terse - Mood Patient's Decription of Mood: "Anxious" - Affect Observed Affect: Tense Affect Consistent with: Dysphoria - Thought Process Patient's Thought Process: Coherent, Goal Directed Thought Content: Yes Passive Wish, Yes Suicidal Planning, No Homicidal Ideation, No Paranoid Ideation - Sensorium Experiencing Hallucinations: Yes Type of Hallucinations: Visual: No, Auditory: Yes, Command: No - Level of Consciousness Level of Consciousness: Alert Orientation: Yes Intact, Yes Orientated to Time, Yes Orientated to Place, Yes Orientated to Person - Impulse Control Impulse Control: Tenuous - Insight and Judgement Insight and Judgement: Fair - Group Participation Particating in Group Activities: Yes - Medication Management Medication Management Adherence: Yes - Additional Observations Comments: Franklyn remains sad and unhappy. He's willing to walk around the unit with company. He is tolerating medications well and is struggling with anxiety, having had a "panic attack" today following having to wait in line and stop pacing. He did not employ any notable coping strategies. Assessment - Assessment Merits Inpatient Hospitalization: For Immediate Safety Inpatient DSM-V Dx: F32.9 Clinical Impression: 23-y.o. white male who is admitted to the [facility] again for similar symptoms to last time (high anxiety and depression). He is depressed and nearly bereft of hope. He does have things in the outside world that might provide him support in the future, but at this time, he cannot see their usefulness. His anxiety is problematically high, as demonstrated by his scratching of his left arm, which is healing. He is somewhat inconsolable and difficult to soothe. Plan - Plan Treatment Plan: Name: RODERICK GUERRERO Birthdate: 1995 [id number] Medications: Current Medications Acetaminophen (Tylenol Tab*) 650 mg PO Q4H PRN PRN Reason: PAIN or TEMP > 101 F Last Admin: 07/07/18 16:59 Dose: 650 mg Al Hydrox/Mg Hydrox/Simethicone (Maalox Plus*) 30 ml PO Q4H PRN PRN Reason: INDIGESTION Bupropion HCl (Wellbutrin Xl *) 150 mg PO DAILY JERRY; Protocol Last Admin: 07/09/18 08:03 Dose: 150 mg Gabapentin (Neurontin Cap(*)) 100 mg PO Q4H PRN PRN Reason: ANXIETY Last Admin: 07/09/18 12:52 Dose: 100 mg [place] Carbonate ([place] Carbonate Er Tab*) 900 mg PO BEDTIME JERRY Last Admin: 07/08/18 20:14 Dose: 900 mg Multivitamins (Theragran Tab*) 1 tab PO DAILY JERRY Last Admin: 07/09/18 08:03 Dose: 1 tab - Discharge Plan Discharge Plan: Outpatient Follow Up Additional Comments: Franklyn will remain on the unit for a time, until he feels more like himself and feels like he can negotiate the problems he came in to escape. Medications will be reassessed as his anxiety is not adequately managed at this time. 07/09/18: Franklyn will need to contact his nurse case manager and his friend Hamilton to determine where he will be living. It is possible that with this information in hand, Franklyn's anxiety will be reduced.
[2018-07-09] MEDS: Lithium Carbonate ER* 450 MG TAB.ER PO SCH (20:13)
[2018-07-10] MEDS: Acetaminophen TAB* 325 MG PO PRN ×2 (08:25→15:23)
[2018-07-10] MEDS: BuPROPion XL* 150 MG TAB.XL PO SCH (08:26)
[2018-07-10] MEDS: Vitamin THERAPEUTIC TAB PO SCH (08:26)
[2018-07-10] MEDS: Gabapentin CAP(*) 100 MG PO PRN ×2 (11:27→16:58)
--- NOTE | 2018-07-10 11:31 | PN ---
[facility]: Group Therapy Note - Service Type Service Type: [id number] Group Psychotherapy - Cognitive Behavioral Group Therapy ( CBT):Patient was attentive and participatory in CBT programming this morning, and remained in good behavioral control. Patient expressed positive insights regarding relevant treatment interventions and goals.
--- NOTE | 2018-07-10 16:18 | PN ---
[facility]: Group Therapy Note - Service Type Service Type: [id number] Group Psychotherapy - Group Participation Patient Participating in Group: Yes Level of Group Participation: Attentive, Spontaneously Participate Relatedness to Group: Well Related - Max did well in group, participating and being an active part of the conversation.
--- NOTE | 2018-07-10 16:52 | PN ---
Subjective - Subjective Date of Service: 07/10/18 Service Type: 39690 Hosp care 35 min high complexity Subjective: Franklyn still feels as though he isn't getting better despite the appearance of enjjoying himself in the milieu and spending time walking with others around the unit. He received the diagnosis of borderline personality disorder today and agreed to research it in an effort to discover ways of improing his mental health. Objective - Appearance Dysmorphic Features: No Hygiene: Normal Grooming: Fairly Well Kept - Behavior Psychomotor Activities: Normal Exhibits Abnormal Movement: No - Attitude and Relatedness Attitude and Relatedness: Needy Eye Contact: Fair - Speech Quality: Unpressured Latencies: Short Quantity: Appropriate - Mood Patient's Decription of Mood: "Terrible" - Affect Observed Affect: Fair - Thought Process Patient's Thought Process: Coherent Thought Content: Yes Passive Wish, Yes Suicidal Planning, No Homicidal Ideation, No Paranoid Ideation - Sensorium Experiencing Hallucinations: Yes Type of Hallucinations: Visual: No, Auditory: Yes, Command: No - Level of Consciousness Level of Consciousness: Alert Orientation: Yes Intact, Yes Orientated to Time, Yes Orientated to Place, Yes Orientated to Person - Impulse Control Impulse Control: Tenuous - Insight and Judgement Insight and Judgement: Fair - Group Participation Particating in Group Activities: Yes - Medication Management Medication Management Adherence: Yes - Additional Observations Comments: Franklyn remains sad and unhappy. He's willing to walk around the unit with company. He is tolerating medications well and is struggling with anxiety, having had a "panic attack" today following having to wait in line and stop pacing. He did not employ any notable coping strategies. The auditory hallucination he is experiencing is symptomatic of borderline personality disorder. Assessment - Assessment Merits Inpatient Hospitalization: For Immediate Safety Inpatient DSM-V Dx: F32.9 Clinical Impression: 23-y.o. white male who is admitted to the [facility] again for similar symptoms to last time (high anxiety and depression). He is depressed and nearly bereft of hope. He does have things in the outside world that might provide him support in the future, but at this time, he cannot see their usefulness. His anxiety is problematically high, as demonstrated by his scratching of his left arm, which is healing. He is somewhat inconsolable and difficult to soothe. He remained in control despite receiving his diagnosis. Plan - Plan Treatment Plan: Name: RODERICK GUERRERO Birthdate: 1995 [id number] Medications: Current Medications Acetaminophen (Tylenol Tab*) 650 mg PO Q4H PRN PRN Reason: PAIN or TEMP > 101 F Last Admin: 07/10/18 15:23 Dose: 650 mg Al Hydrox/Mg Hydrox/Simethicone (Maalox Plus*) 30 ml PO Q4H PRN PRN Reason: INDIGESTION Bupropion HCl (Wellbutrin Xl *) 150 mg PO DAILY JERRY; Protocol Last Admin: 07/10/18 08:26 Dose: 150 mg Gabapentin (Neurontin Cap(*)) 100 mg PO Q4H PRN PRN Reason: ANXIETY Last Admin: 07/10/18 11:27 Dose: 100 mg [place] Carbonate ([place] Carbonate Er Tab*) 900 mg PO BEDTIME JERRY Last Admin: 07/09/18 20:13 Dose: 900 mg Multivitamins (Theragran Tab*) 1 tab PO DAILY JERRY Last Admin: 07/10/18 08:26 Dose: 1 tab - Discharge Plan Discharge Plan: Outpatient Follow Up Additional Comments: Franklyn will remain on the unit for a time, until he feels more like himself and feels like he can negotiate the problems he came in to escape. Medications will be reassessed as his anxiety is not adequately managed at this time. 07/09/18: Franklyn will need to contact his field nurse case manager and his friend Hamilton to determine where he will be living. It is possible that with this information in hand, Franklyn's anxiety will be reduced. 07/10/18: Franklyn has made no plans to be discharged at this time and would like to stay longer.
[2018-07-10] MEDS: Lithium Carbonate ER* 450 MG TAB.ER PO SCH (20:43)
[2018-07-11] MEDS: Vitamin THERAPEUTIC TAB PO SCH (08:10)
[2018-07-11] MEDS: Gabapentin CAP(*) 100 MG PO PRN ×2 (08:10→18:03)
[2018-07-11] MEDS: BuPROPion XL* 150 MG TAB.XL PO SCH (08:10)
[2018-07-11] MEDS: Acetaminophen TAB* 325 MG PO PRN ×3 (09:39→20:19)
[2018-07-11] MEDS: Lithium Carbonate ER* 450 MG TAB.ER PO SCH (20:19)
--- NOTE | 2018-07-11 22:31 | PN ---
Subjective - Subjective Date of Service: 07/11/18 Service Type: 13072 Hosp care 15 min low complexity Subjective: Sarah Melendrez and I met with Franklyn to say that he needs to begin planning for discharge. The meeting did not go well. Franklyn maintains that he has "no will to live." He was offered DBT homework but told Linda Alvarado, recreation therapist , that he was not interested in doing work regarding getting better. He continues to hope that he will get better on his own. The meeting ended abruptly with Franklyn getting up and waking away and throwing away the packet of paper that he had been given. Objective - Appearance Appearance: Healthy Appearing Dysmorphic Features: No Hygiene: Normal Grooming: Fairly Well Kept - Behavior Psychomotor Activities: Normal Exhibits Abnormal Movement: No - Attitude and Relatedness Attitude and Relatedness: Irritable Eye Contact: Fair - Speech Quality: Unpressured Quantity: Terse - Mood Patient's Decription of Mood: "Terrible" - Affect Observed Affect: Depressed Affect Consistent with: Dysphoria - Thought Process Patient's Thought Process: Coherent Thought Content: Yes Passive Wish, Yes Suicidal Planning, No Homicidal Ideation, No Paranoid Ideation - Sensorium Experiencing Hallucinations: Yes Type of Hallucinations: Visual: No, Auditory: Yes, Command: No - Level of Consciousness Level of Consciousness: Alert Orientation: Yes Intact, Yes Orientated to Time, Yes Orientated to Place, Yes Orientated to Person - Impulse Control Impulse Control: Tenuous - Insight and Judgement Insight and Judgement: Fair - Group Participation Particating in Group Activities: Yes - Additional Observations Comments: Franklyn remains sad and unhappy. He's willing to walk around the unit with company. He is tolerating medications well and is struggling with anxiety, having had a "panic attack" today following having to wait in line and stop pacing. He did not employ any notable coping strategies. The auditory hallucination he is experiencing is symptomatic of borderline personality disorder. He is irritable and angry about the plan to discharge him. Assessment - Assessment Merits Inpatient Hospitalization: For Stabilization, For Discharge Planning Inpatient DSM-V Dx: F32.9 Clinical Impression: 23-y.o. white male who is admitted to the [facility] again for similar symptoms to last time (high anxiety and depression). He is depressed and nearly bereft of hope by his report, but he does appear to be enjoying the company of peers. He does have things in the outside world that might provide him support in the future, but at this time, he cannot see their usefulness. His anxiety is problematically high, as demonstrated by his scratching of his left arm, which was healing but he has begun scratching at it again. His behavior is not consistent with inconsolable depression when he is observed with his peers. When he is asked how he is, however, he seems to wilt. This behavior is consistent with his diagnoses. Plan - Plan Treatment Plan: Name: RODERICK GUERRERO Birthdate: 1995 [id number] Medications: Current Medications Acetaminophen (Tylenol Tab*) 650 mg PO Q4H PRN PRN Reason: PAIN or TEMP > 101 F Last Admin: 07/11/18 20:19 Dose: 650 mg Al Hydrox/Mg Hydrox/Simethicone (Maalox Plus*) 30 ml PO Q4H PRN PRN Reason: INDIGESTION Bupropion HCl (Wellbutrin Xl *) 150 mg PO DAILY [facility]; Protocol Last Admin: 07/11/18 08:10 Dose: 150 mg Gabapentin (Neurontin Cap(*)) 100 mg PO Q4H PRN PRN Reason: ANXIETY Last Admin: 07/11/18 18:03 Dose: 100 mg [place] Carbonate ([place] Carbonate Er Tab*) 900 mg PO BEDTIME [facility] Last Admin: 07/11/18 20:19 Dose: 900 mg Multivitamins (Theragran Tab*) 1 tab PO DAILY [facility] Last Admin: 07/11/18 08:10 Dose: 1 tab - Discharge Plan Discharge Plan: Outpatient Follow Up Additional Comments: Franklyn will remain on the unit for a time, until he feels more like himself and feels like he can negotiate the problems he came in to escape. Medications will be reassessed as his anxiety is not adequately managed at this time. 07/09/18: Franklyn will need to contact his caseworker protective services and his friend Hamilton to determine where he will be living. It is possible that with this information in hand, Franklyn's anxiety will be reduced. 07/10/18: Franklyn has made no plans to be discharged at this time and would like to stay longer. 07/11/18: Franklyn is angry about being discharged and employs threats as a means to stay. The plan remains to discharge him as he is not engaged in the treatment that is prescribed.
[2018-07-12] MEDS: BuPROPion XL* 150 MG TAB.XL PO SCH (09:20)
[2018-07-12] MEDS: Vitamin THERAPEUTIC TAB PO SCH (09:20)
--- NOTE | 2018-07-12 11:25 | PN ---
Subjective - Subjective Date of Service: 07/12/18 Service Type: 91602 Hosp care 15 min low complexity Subjective: Patient is irritable and defensive. He states "I'm fucking suicidal!" Preventive Maintenance Engineer attempts to assist in emotion identification and to inform him of attempts made to alleviate stressors that were present prior to admission. Throughout the conversation, he is increasingly agitated and abruptly leaves the conversation. Objective - Appearance Appearance: Well Developed/Nourished Dysmorphic Features: Yes Hygiene: Normal Grooming: Well Kept - Behavior Psychomotor Activities: Normal Exhibits Abnormal Movement: No - Attitude and Relatedness Attitude and Relatedness: Irritable Eye Contact: Good - Speech Quality: Pressured Latencies: Normal Quantity: Appropriate - Mood Patient's Decription of Mood: "suicidal" - Affect Observed Affect: Depressed Affect Consistent with: Dysphoria - Thought Process Patient's Thought Process: Circumstantial Thought Content: Yes Passive Wish, No Suicidal Planning, No Homicidal Ideation, No Paranoid Ideation - Sensorium Experiencing Hallucinations: No, Sensorium is Clear Type of Hallucinations: Visual: Yes, Auditory: Yes, Command: Yes - Level of Consciousness Level of Consciousness: Alert Orientation: Yes Intact, Yes Orientated to Time, Yes Orientated to Place, Yes Orientated to Person - Impulse Control Impulse Control: Poor - Insight and Judgement Insight and Judgement: Poor - Group Participation Particating in Group Activities: No - Medication Management Medication Management Adherence: No Assessment - Assessment Merits Inpatient Hospitalization: For Immediate Safety, Pending Safe DC Plan Inpatient DSM-V Dx: F32.9 Clinical Impression: 23-y.o. white male who is admitted to the [facility] again for similar symptoms to last time (high anxiety and depression). He is depressed and nearly bereft of hope by his report, but he does appear to be enjoying the company of peers. He does have things in the outside world that might provide him support in the future, but at this time, he cannot see their usefulness. His anxiety is problematically high, as demonstrated by his scratching of his left arm, which was healing but he has begun scratching at it again. His behavior is not consistent with inconsolable depression when he is observed with his peers. When he is asked how he is, however, he seems to wilt. This behavior is consistent with his diagnoses. Patient is increasingly agitated and appears to sabotage discharge planning. MHU: Problem List - Patient Problems (1) Borderline personality disorder Current Visit: Yes Status: Acute Priority: High Code(s): F60.3 - BORDERLINE PERSONALITY DISORDER SNOMED Code(s): 44379718 Comment: continue DBT skills training Plan - Plan Treatment Plan: Name: RODERICK GUERRERO Birthdate: 1995 [id number] continue acute intensive psychiatric treatment, focusing on DBT skills training. discharge to include outpatient referrals and community resources. Medications: Current Medications Acetaminophen (Tylenol Tab*) 650 mg PO Q4H PRN PRN Reason: PAIN or TEMP > 101 F Last Admin: 07/11/18 20:19 Dose: 650 mg Al Hydrox/Mg Hydrox/Simethicone (Maalox Plus*) 30 ml PO Q4H PRN PRN Reason: INDIGESTION Bupropion HCl (Wellbutrin Xl *) 150 mg PO DAILY [facility]; Protocol Last Admin: 07/12/18 09:20 Dose: Not Given Gabapentin (Neurontin Cap(*)) 100 mg PO Q4H PRN PRN Reason: ANXIETY Last Admin: 07/11/18 18:03 Dose: 100 mg [place] Carbonate ([place] Carbonate Er Tab*) 900 mg PO BEDTIME [facility] Last Admin: 07/11/18 20:19 Dose: 900 mg Multivitamins (Theragran Tab*) 1 tab PO DAILY [facility] Last Admin: 07/12/18 09:20 Dose: Not Given - Discharge Plan Discharge Plan: Outpatient Follow Up Outpatient Program: [facility]
[2018-07-12] MEDS: Gabapentin CAP(*) 100 MG PO PRN ×2 (11:42→20:12)
[2018-07-12] MEDS: Acetaminophen TAB* 325 MG PO PRN (11:42)
[2018-07-12] MEDS: Lithium Carbonate ER* 450 MG TAB.ER PO SCH (20:13)
[2018-07-13] MEDS: Vitamin THERAPEUTIC TAB PO SCH (08:03)
[2018-07-13] MEDS: BuPROPion XL* 150 MG TAB.XL PO SCH (08:03)
[2018-07-13] MEDS: Gabapentin CAP(*) 100 MG PO PRN ×3 (08:03→18:46)
[2018-07-13] MEDS: Acetaminophen TAB* 325 MG PO PRN (13:05)
[2018-07-13] MEDS: Lithium Carbonate ER* 450 MG TAB.ER PO SCH (20:20)
[2018-07-14] MEDS: Vitamin THERAPEUTIC TAB PO SCH (08:10)
[2018-07-14] MEDS: BuPROPion XL* 150 MG TAB.XL PO SCH (08:10)
[2018-07-14] MEDS: Gabapentin CAP(*) 100 MG PO PRN ×3 (09:31→21:14)
[2018-07-14] MEDS: Acetaminophen TAB* 325 MG PO PRN (13:11)
[2018-07-14] MEDS: Lithium Carbonate ER* 450 MG TAB.ER PO SCH (21:23)
[2018-07-15] MEDS: Gabapentin CAP(*) 100 MG PO PRN ×3 (09:34→20:08)
[2018-07-15] MEDS: BuPROPion XL* 150 MG TAB.XL PO SCH (09:36)
[2018-07-15] MEDS: Vitamin THERAPEUTIC TAB PO SCH (09:36)
--- NOTE | 2018-07-15 12:13 | PN ---
MHU: Group Therapy Note - Service Type Service Type: 62441 Group Psychotherapy - Cognitive Behavioral Group Note: Franklyn attended programming and was very involved in discussion addressing his depression and continuing thoughts of suicide. He describes moving from passive wish to "feeling as though I've accepted my decision" referring to his thoughts of suicide. He responds positively to discussion regarding treatment of depression and approaching his situation one day at a time. His mood brightens when engaged in conversation with staff and peers, but he returns to his thoughts of "acceptance" in context of suicidal rumination.
[2018-07-15] MEDS: Acetaminophen TAB* 325 MG PO PRN ×2 (12:57→18:42)
--- NOTE | 2018-07-15 14:30 | PN ---
Subjective - Subjective Date of Service: 07/15/18 Service Type: 27617 Hosp care 15 min low complexity Subjective: Franklyn and I discussed his discharge, which is planned for tomorrow. Franklyn states he doesn't care to make any discharge plans because he will certainly suicide upon discharge. We discuss what strategies can be employed to keep him safe and healthy. He declines to discuss this as his mind is made up. I question whether he might improve in a week, and he says he will not. He will simply end his life at the end of his hospital stay, whenever that is. His decision is in contrast to his affect when he is talking to others. He smiles and is somewhat flirtatious with other staff and his peers. He can move himself to tears at times, but at other times he is content to be with peers and to walk the halls with them chatting. Objective - Appearance Appearance: Healthy Appearing Dysmorphic Features: No Hygiene: Normal Grooming: Fairly Well Kept - Behavior Psychomotor Activities: Normal Exhibits Abnormal Movement: No - Attitude and Relatedness Attitude and Relatedness: Needy Eye Contact: Fair - Speech Quality: Unpressured Latencies: Normal Quantity: Terse - Mood Patient's Decription of Mood: "Upset" - Affect Observed Affect: Tearful Affect Consistent with: Dysphoria - Thought Process Patient's Thought Process: Coherent, Goal Directed Thought Content: Yes Suicidal Planning, No Passive Wish, No Homicidal Ideation, No Paranoid Ideation - Sensorium Experiencing Hallucinations: Yes Type of Hallucinations: Visual: No, Auditory: Yes, Command: No - Level of Consciousness Level of Consciousness: Alert Orientation: Yes Intact, Yes Orientated to Time, Yes Orientated to Place, Yes Orientated to Person - Impulse Control Impulse Control: Tenuous - Insight and Judgement Insight and Judgement: Fair - Group Participation Particating in Group Activities: Yes - Medication Management Medication Management Adherence: No - Additional Observations Comments: Franklyn remains sad and unhappy. He's willing to walk around the unit with company, such as his peers. He is not taking medications, with the exception of PRN gabapentin, as he will not be taking medication "when I am ." Still, he doesn't want to be uncomfortable, so he is trying to stay comfortable with the gabapentin. Assessment - Assessment Merits Inpatient Hospitalization: For Discharge Planning Inpatient DSM-V Dx: F32.9 Clinical Impression: 23-y.o. white male who is admitted to the [facility] again for similar symptoms to last time (high anxiety and depression). He is depressed and nearly bereft of hope by his report, but he does appear to be enjoying the company of peers. He does have things in the outside world that might provide him support in the future, but at this time, he cannot see their usefulness. His behavior is not consistent with inconsolable depression when he is observed with his peers and with other staff members; in fact, he seems happy and delighted by their company and attention. When he is asked how he is, however, he seems to wilt. This behavior is consistent with his diagnoses. Plan - Plan Treatment Plan: Name: RODERICK GUERRERO Birthdate: 1995 [id number] Medications: Current Medications Acetaminophen (Tylenol Tab*) 650 mg PO Q4H PRN PRN Reason: PAIN or TEMP > 101 F Last Admin: 07/15/18 12:57 Dose: 650 mg Al Hydrox/Mg Hydrox/Simethicone (Maalox Plus*) 30 ml PO Q4H PRN PRN Reason: INDIGESTION Bupropion HCl (Wellbutrin Xl *) 150 mg PO DAILY [facility]; Protocol Last Admin: 07/15/18 09:36 Dose: Not Given Gabapentin (Neurontin Cap(*)) 100 mg PO Q4H PRN PRN Reason: ANXIETY Last Admin: 07/15/18 09:34 Dose: 100 mg [place] Carbonate ([place] Carbonate Er Tab*) 900 mg PO BEDTIME [facility] Last Admin: 07/14/18 21:23 Dose: Not Given Multivitamins (Theragran Tab*) 1 tab PO DAILY [facility] Last Admin: 07/15/18 09:36 Dose: Not Given - Discharge Plan Discharge Plan: Outpatient Follow Up Additional Comments: Franklyn will remain on the unit for a time, until he feels more like himself and feels like he can negotiate the problems he came in to escape. Medications will be reassessed as his anxiety is not adequately managed at this time. 07/09/18: Franklyn will need to contact his rehabilitation case coordinator and his friend Hamilton to determine where he will be living. It is possible that with this information in hand, Franklyn's anxiety will be reduced. 07/10/18: Franklyn has made no plans to be discharged at this time and would like to stay longer. 07/11/18: Franklyn is angry about being discharged and employs threats as a means to stay. The plan remains to discharge him as he is not engaged in the treatment that is prescribed. 07/15/18: Franklyn is agitated today. He seems less angry and in fact apologized, but maintains he will suicide. We have made many plans for him for discharge that will improve his safety, such as a [facility] program in [facility].
--- NOTE | 2018-07-15 14:52 | PN ---
Subjective - Subjective Date of Service: 07/15/18 Service Type: 17986 Hosp care 35 min high complexity Subjective: This clinician is asked by attending nurse practitioner Rajani Lemus to consult on patient Franklyn Guerrero, whose continued complaints of imminent suicidality if discharged seem inconsistent with the behaviors he repetitively displays on the unit. Prior to meeting with him I read the staff notes reflecting his behavior over the course of this hospitalization. They provide several incongruities with his stated internal state of hopelessness and despair. Examples include sleeping and eating well, a bright "euthymic" affect , consistent socialization with peers, requesting specific amounts of time for further inpatient care, attention-seeking, smiling, joking and playing card games with peers. Additionally, his complaints of AH are similarly contradictory, given the absence of any observations from staff that describe him responding to internal stimuli. With respect to his treatment on the unit, Franklyn is described by the treatment team as someone who is not benefitting from further inpatient care. He is documented as leaving group therapy early, not completing assigned therapeutic work, consistently declining meds and interacting with clinical providers in a passive aggressive fashion, seeming to hold his safety after discharge over their heads in a manipulative fashion. When I meet with him he does not appear depressed or constricted but rather with a full affect. This is despite telling me that his plan is to commit suicide shortly after discharge. "I don't know yet how I'll do it, but I'm tired of not feeling better and this is the best way for me." Judging by the way he looks at me, it seems as though he is probing for what possible affect these statements might be having on this clinician. He seems to take no responsibility for follow up planning such as housing, outpatient care or goals for the future. "I won't need any of that stuff...I won't be around anymore" he says, melodramatically. When confronted about the incongruous nature of his presentation, he insists that staff just aren't writing it down when he's crying or sobbing on the unit. "I feel different from hour to hour...sometimes from minute to minute." When asked about his lack of follow through with recommended treatment here on the [facility], he similarly asserts "I go to all of the groups, they just don't write it down." When asked what he needs to feel better , he responds "Just a week or two more. Enough time to find a place to live that's not a senior care." When asked if he's taken any steps to get himself a more sturdy living situation he admits that he has not, suggesting that it is the social media content manager's responsibility. Objective - Appearance Appearance: Well Developed/Nourished Dysmorphic Features: No Hygiene: Normal Grooming: Well Kept - Behavior Psychomotor Activities: Normal Exhibits Abnormal Movement: No - Attitude and Relatedness Attitude and Relatedness: Cooperative Eye Contact: Good - Speech Quality: Unpressured Latencies: Normal Quantity: Appropriate - Mood Patient's Decription of Mood: "Sad" - Affect Observed Affect: Good Affect Consistent with: Euthymia - Thought Process Patient's Thought Process: Coherent Thought Content: Yes Suicidal Planning, No Passive Wish, No Homicidal Ideation, No Paranoid Ideation - Sensorium Experiencing Hallucinations: Yes Type of Hallucinations: Visual: No, Auditory: Yes, Command: No - Level of Consciousness Level of Consciousness: Alert Orientation: Yes Intact, Yes Orientated to Time, Yes Orientated to Place, Yes Orientated to Person - Impulse Control Impulse Control: Tenuous - Insight and Judgement Insight and Judgement: Impaired - Group Participation Particating in Group Activities: No - Medication Management Medication Management Adherence: No Assessment - Assessment Merits Inpatient Hospitalization: Pending Safe DC Plan Inpatient DSM-V Dx: F32.9 Clinical Impression: The patient's presentation appears most consistent with a diagnosis of borderline personality disorder. This condition is notoriously difficult to treat in an inpatient setting and may actually get worse from inpatient exposure. His behavior is not consistent with that of a suicidally depressed or anxious person. In addition, he does not seem to be improving from inpatient care, but rather worsening. I see no rationale for further inpatient hospitalization beyond being held hostage by his threats, which strike this observer as manipulative in nature. Plan - Plan Treatment Plan: Name: RODERICK GUERRERO Birthdate: 1995 [id number] The patient is receiving bupropion XL 150mg PO qam and lithium 900mg PO qhs but these seem of dubious benefit, particularly since he is not adhering with them. I would favor a psychotherapy approach in the community with intensive case management and referral to emergency senior care services until he can get his feet under him. These recommendations are shared with the patient, who expresses understanding but not agreement. Continued Medication Management: Consider Medication Medications: Current Medications Acetaminophen (Tylenol Tab*) 650 mg PO Q4H PRN PRN Reason: PAIN or TEMP > 101 F Last Admin: 07/15/18 12:57 Dose: 650 mg Al Hydrox/Mg Hydrox/Simethicone (Maalox Plus*) 30 ml PO Q4H PRN PRN Reason: INDIGESTION Bupropion HCl (Wellbutrin Xl *) 150 mg PO DAILY [facility]; Protocol Last Admin: 07/15/18 09:36 Dose: Not Given Gabapentin (Neurontin Cap(*)) 100 mg PO Q4H PRN PRN Reason: ANXIETY Last Admin: 07/15/18 09:34 Dose: 100 mg [place] Carbonate ([place] Carbonate Er Tab*) 900 mg PO BEDTIME [facility] Last Admin: 07/14/18 21:23 Dose: Not Given Multivitamins (Theragran Tab*) 1 tab PO DAILY [facility] Last Admin: 07/15/18 09:36 Dose: Not Given - Discharge Plan Discharge Plan: Outpatient Follow Up Outpatient Program: [facility]
[2018-07-15] MEDS: Lithium Carbonate ER* 450 MG TAB.ER PO SCH (23:08)
[2018-07-16 08:29] VITALS: BP 122/72
[2018-07-16] MEDS: Gabapentin CAP(*) 100 MG PO PRN (10:15)
[2018-07-16] MEDS: Vitamin THERAPEUTIC TAB PO SCH (10:52)
[2018-07-16] MEDS: BuPROPion XL* 150 MG TAB.XL PO SCH (10:52)
--- NOTE | 2018-07-16 16:14 | PN ---
Progress Note - Progress Note Date of Service: 07/16/18 Note: Patient was seen yesterday and today as requested by his attending provider. Patient has been observed at other instances during this hospitalization and also discussed with team. Patient has been inconsistent with his treatments and recommendations. Demanding more inpatient hospitalization for unspecified time and for reasons that he needs to address in the community e.g housing, job etc. Patient has mentioned about auditory hallucinations at various instances during this hospitalization but did not appear to be internally preoccupied during this hospitalization. Patient has been socializing, joking with peers on the unit with out any distress. But when asked about treatment and discharge planing makes suicidal statement that are more dramatic and can be due to his personality traits and not secondary to any major psychiatric illness at this time. Patient has been educated about resources in the community but resist being discharged. Patient border line personality traits needs to be more addressed with psychotherapy in the community while he resolves his social issues. Patient is not benefiting from this hospitalization instead his symptoms are worsening and enabling him to prevent make better choices to a better life. Patient currently do not appear to be of any danger to self and others imminently or in near future. Patient is appropriate for outpatient care and do not meet criteria for inpatient psychiatric hospitalization. Patent was not psychotic, not manic, mildly depressed, minimal anxiety, hence after discussing with team/provider patient was planned to be discharged today to go to [facility] and address his social needs including housing situation with appropriate follow ups in the community.
--- NOTE | 2018-07-17 04:55 | DS ---
DISCHARGE SUMMARY: DATE OF ADMISSION: 07/02/18 DATE OF DISCHARGE: 07/16/18 PROVIDER: Rajani Lemus NP, in Psychiatry. SUPERVISING PHYSICIAN: Isidoro Devlin MD * (DICTATED BY RAJANI LEMUS NP ) DIAGNOSES: [place] I: Depressive disorder, NOS. [place] II: Borderline personality disorder. CONDITION AT THE TIME OF DISCHARGE: Visibly improved, psychiatrically cleared, stable. Franklyn participated in some groups and was very social with peers. He has done well psychiatrically, his affect growing visibly brighter, improving from the time that he was admitted. He did tolerate new meds very well, although by the end of his admission he was not taking them any more. He is scheduled to attend [facility] and [facility]. MENTAL STATUS EXAM: At the time of discharge, Franklyn is calm. He is not cooperative. He is making poor eye contact. He states he is suicidal. He is alert and oriented x3. His grooming is adequate. His speech pace is normal. His thought processes are not psychotic or delusional. He denies visual hallucinations and homicidal ideation. He states he has a woman's voice that speaks to him in his head. He states he has suicidal ideation. His insight is fair. His judgment is fair. He is instructed to follow up and urged to see a therapist. DISCHARGE INSTRUCTIONS TO THE PATIENT: A. Medications: Franklyn came in on 50 mg of Benadryl p.r.n. at bedtime for insomnia. He was discharged with that recommendation as well. He had been prescribed several medications including Wellbutrin and lithium, which he determined not to take any longer stating it would not matter and why waste the medications. B. Diet is regular. C. Activities: As tolerated. Franklyn is a nonsmoker. There are no studies pending at the time of discharge. D. Followup care: He has appointments immediately following his discharge at [facility] and he has an appointment with his date night caregiver, Odalys, on 07/17/18 at 11 a.m. He has an appointment with his therapist, Robert, on 07/25/18 at 11:15, although there is a possibility that he may be seen tomorrow instead. He also has an appointment with his psychiatrist , Dr. Segura on 07/25/18. E. Substance abuse followup. Franklyn is not a substance user. HOSPITAL COURSE: Part A: Chief Complaint: "A couple of days ago, I was thinking about overdosing but I waited but I still wanted to do it a day later, so I called the lead consultant on myself." The patient is a 23-year-old male who is white and in relationship with a history of hospitalizations that revealed diagnoses of depression, dissociative disorder and rule out bipolar disorder. He is here on a voluntary status after being brought in by the police. Franklyn is having urges to kill himself. He states he has been depressed since his teens that he recognizes, but probably before that as well he thinks. He had a suicide attempt once before about 3 years ago after his ex- girlfriend miscarried and he could not tolerate that distress. He has been admitted here at the hospital before once and before that he was seen at [facility] in [place]. He states he cannot concentrate. Last night he woke up "about 15 times." He feels hopeless and worthless and helpless. He states he is on no medication right now, because he is in the middle of a transition. He is having a difficult time with his living situation. He states he has a voice of a woman that causes him to be full of self doubt, she is very negative, she states "I will be the only one in your life." His sleep is disrupted. He has little interest in things. He is full of regret about his childhood. His energy level is low. He states he cannot concentrate and he is having suicidal ideation and urges. Part B: Psychiatric treatment was rendered. Franklyn was admitted to the adult behavioral unit and placed on 15-minute checks for safety. Franklyn, while appearing to be depressed and distressed in my presence, appeared in the presence of his peers and other staff to be euthymic. He was consistent in his socializing. He jokes with people, played games with his peers. He walked with great frequency around the unit with his peers chatting. The complaint about the woman's voice in his head is difficult to understand given that he does not appear to be responding to internal stimuli. He has been described as someone who has benefitted as much as possible from his treatment. He has angrily discarded therapeutic homework in the trash in front of staff. He has left many groups early. He has not participated in groups that he has stayed through. He declines medications and he is using the threat of suicide as a means of keeping himself in the hospital despite not being able to say what he will ash from staying here. He is incongruent when he speaks with me, appearing to be quite distressed and sad while not taking any responsibility for working on what would improve his situation rather than taking advantage of resources on the behavioral unit that would aid him in finding housing or a more stable lifestyle. He states that he is instead ready to end his life because "Life has won, it's too hard." He has been offered many suggestions. He has been asked himself if he has any thoughts and at all of these times, he has declined to take suggestions and he is unwilling to offer any solutions of his own. Franklyn presents with behaviors that are most consistent with a borderline personality disorder diagnosis. Because of the difficulty in treating this inpatient, we must plan to have him return to outpatient care where he will make better progress. His behavior and his affect are not consistent with a suicidally depressed or anxious person. He also has made statements that would indicate that he is not improving in this setting and in fact might be getting worse. It seems that continued inpatient hospitalization would not be reasonable aside from giving in to threats of his that he will end his life. It should be noted that Franklyn was prescribed Wellbutrin XL 150 mg in the morning and lithium 900 mg at bedtime. These do not seem to be beneficial to him; further, he is not willing adhere to medication recommendations. It is also important for Franklyn to take care of his responsibilities in making himself healthier and forming a psychotherapeutic alliance with his provider, Robert. He also has access to an intensive manager case management who can refer him to skilled nursing that will at least temporarily meet his needs. Franklyn is not eager to leave. He is declining to put together his belongings. He , on his way out the door, discards his wallet which is retrieved by nursing staff. He does not want to get into the cab that has come for him, rather he sits in a chair and does not want to move. Security was eventually called. They urged him into the cab by suggesting that he is trespassing and that they might file charges against him. In addition, nursing staff explained to him the utility of going to DSS to get housing rather than simply walking out the door and going back to the emergency room. RAJANI LEMUS, [place] [id number]/[facility] #: [id number] CLAUDIA
== END 2018-07-16 11:00 | disposition home or self-care (01) | DRG 754 ==
LOC: ED 10:52 → BSU 07-02 11:49
PROVIDERS: ADMIT Psychiatry & Neurology Psychiatry; ATTEND Psychiatry & Neurology Psychiatry
DX: F32.9 Major depressive disorder, single episode, unspecified (principal); R45.851 Suicidal ideations; F60.3 Borderline personality disorder; D64.9 Anemia, unspecified; Z62.812 Personal history of neglect in childhood; Z79.899 Other long term (current) drug therapy; Z81.1 Family history of alcohol abuse and dependence
CPT/HCPCS: 36415; 80053; 80061; 80307; 80320; 80329; 81003; 81015; 83036; 84443; 85025; 87086; 93005; 99284; A9270-GY; G0480